=== PATIENT | male | born 1980 ===

== ENCOUNTER 2018-01-06 17:15 | Emergency (ER) | payer BC ==
[2018-01-06 17:24] VITALS: RESP 18
--- NOTE | 2018-01-06 18:10 | C.PDOC ---
History Of Present Illness 37 y/o male presents to the ED stating that 10 days ago he developed a non- productive cough and chest congestion. No fever. Patient reports he started to feel better after the weekend but then yesterday the cough worsened, especially when lying down. He was unable to sleep and went to see his PMD today. In the office today, Dr. Oleary noted his lungs were clear, patient was not hypoxic, however she noticed an irregularity in his heart rhythm, with intermittent bigeminy on EKG, which patient has never had before. Patient was sent to the ER for further evaluation. He otherwise denies any SOB, chest pain, palpitations, dizziness, weakness, numbness, or fever. Time Seen by Provider: 01/06/18 17:54 Chief Complaint (Nursing): Cough, Cold, Congestion History Per: Patient History/Exam Limitations: no limitations Onset/Duration Of Symptoms: Days Current Symptoms Are (Timing): Still Present Past Medical History Reviewed: Historical Data, Nursing Documentation, Vital Signs Vital Signs: Last Vital Signs Temp 98 F 01/06/18 19:42 Pulse 78 01/06/18 19:42 Resp 18 01/06/18 19:42 BP 118/76 01/06/18 19:42 Pulse Ox 99 01/06/18 19:57 - Medical History PMH: No Chronic Diseases Other Surgeries: Vasectomy Family History: States: No Known Family Hx - Social History Hx Tobacco Use: No Hx Alcohol Use: No Hx Substance Use: No Review Of Systems Constitutional: Negative for: Fever, Chills Cardiovascular: Positive for: Other (chest congestion). Negative for: Chest Pain, Palpitations Respiratory: Positive for: Cough. Negative for: Shortness of Breath, Sputum Neurological: Negative for: Weakness, Numbness, Dizziness Physical Exam - Physical Exam Appears: Non-toxic, No Acute Distress Skin: Normal Color, Warm, Dry Head: Atraumatic, Normacephalic Eye(s): bilateral: Normal Inspection, PERRL, EOMI Nose: Normal Oral Mucosa: Moist Neck: Normal ROM, Supple Chest: Symmetrical, No Tenderness Cardiovascular: Rhythm Irregular (occasional irregularity/ectopy) Respiratory: Normal Breath Sounds, No Accessory Muscle Use, No Rales, No Rhonchi , No Wheezing Gastrointestinal/Abdominal: Soft, No Tenderness, No Distention Extremity: Bilateral: Atraumatic, Normal Color And Temperature, Normal ROM Pulses: Left Dorsalis Pedis: Normal, Right Dorsalis Pedis: Normal Neurological/Psych: Oriented x3, Normal Speech Gait: Steady ED Course And Treatment - Laboratory Results Result Diagrams: 01/06/18 18:28 01/06/18 18:28 Lab Interpretation: Abnormal (BUN 24, Troponin normal, electrolytes normal.) ECG: Interpreted By Me, Viewed By Me ECG Rhythm: Sinus Rhythm (with frequent PVCs, trigeminy, otherwise normal) Rate From EC O2 Sat by Pulse Oximetry: 99 (RA) Pulse Ox Interpretation: Normal - Radiology CXR: Interpreted by Me CXR Interpretation: Yes: No Acute Disease Reevaluation Time: 19:57 Reassessment Condition: Improved - Physician Consult Information Time Consulting Physician Contacted: 20:06 Physician Contacted: Stephanie Oleary Outcome Of Conversation: Case discussed. Patient will be follow by her in the office and referred to cardiology if needed. Medical Decision Making Medical Decision Making: Initial Impression: 37 y/o M sent in for irregular rhythm Time: 17:59 Initial Plan: --EKG --CMP --CBC --Troponin I --Chest x-ray Disposition Counseled Patient/Family Regarding: Studies Performed, Diagnosis, Need For Followup, Rx Given - Disposition Referrals: Stephanie Oleary MD [Staff Provider] - Disposition: HOME/ ROUTINE Disposition Time: 20:06 Condition: STABLE Prescriptions: Benzonatate 200 mg PO TID PRN #30 capsule PRN Reason: Cough Instructions: Upper Respiratory Infection (ED), Cough in Adults Forms: [facility] (German) - Clinical Impression Clinical Impression: Upper respiratory infection, Cough in adult - Scribe Statement The provider has reviewed the documentation as recorded by the Dewey Harrison Provider Attestation: All medical record entries made by the Dewey were at my direction and personally dictated by me. I have reviewed the chart and agree that the record accurately reflects my personal performance of the history, physical exam, medical decision making, and the department course for this patient. I have also personally directed, reviewed, and agree with the discharge instructions and disposition.
[2018-01-06 18:32] LABS: BASO % 0.7 % (0.0-2.0); EOS # 0.6 K/uL (0.0-0.7); EOS % 8.2 % (0.0-4.0); HEMOGLOBIN 13.5 g/dL (12.0-18.0); LYMPH # 2.1 K/uL (1.0-4.3); LYMPH % 31.6 % (20.0-40.0); MEAN CELL VOLUME 87.4 fL (80.0-94.0); MEAN CORPUSCULAR HEMOGLOBIN 29.4 pg (27.0-31.0); MEAN CORPUSCULAR HGB CONC 33.6 g/dL (33.0-37.0); MEAN PLATELET VOLUME 8.6 fL (7.2-11.7); MONO # 0.5 K/uL (0.0-0.8); MONO % 8.1 % (0.0-10.0); NEUT # 3.5 K/uL (1.8-7.0); NEUT % 51.4 % (50.0-75.0); NRBC % 0.2 % (0.0-2.0); RBC 4.6 Mil/uL (4.40-5.90); RED CELL DISTRIBUTION WIDTH 13.6 % (11.5-14.5); WHITE BLOOD COUNT 6.8 K/uL (4.8-10.8)
[2018-01-06 18:50] LABS: ALB/GLOB RATIO 1.2 (1.0-2.1); ALBUMIN 4.5 g/dL (3.5-5.0); ALT/SGPT 22 U/L (21-72); AST/SGOT 42 U/L (17-59); BLOOD UREA NITROGEN 24 mg/dL (9-20); CALCIUM 9.3 mg/dl (8.6-10.4); GFR AFRICAN-AMERICAN > 60; GFR NON-AFRICAN AMERICAN 57
[2018-01-06] MEDS ORDERED: Sodium Chloride 0.9% 1,000 ML IV ONE (19:16)
[2018-01-06 19:42] VITALS: PULSE 78; TEMP 98
[2018-01-06 20:28] VITALS: BP 136/74; O2SAT 98
--- NOTE | 2018-01-07 07:57 | RAD ---
HISTORY: SOB COMPARISON: Chest radiographs 01/06/2018. TECHNIQUE: Chest PA and lateral FINDINGS: LUNGS: No active pulmonary disease. PLEURA: No significant pleural effusion identified. No pneumothorax apparent. CARDIOVASCULAR: Normal. OSSEOUS STRUCTURES: No significant abnormalities. VISUALIZED UPPER ABDOMEN: Normal. OTHER FINDINGS: None. IMPRESSION: No interval acute cardiopulmonary disease appreciated.
--- NOTE | 2018-01-07 19:21 | CARD ---
APPROVED REPORT EKG Measurement Heart [id number] <Conclusion> Sinus rhythm with frequent premature ventricular complexes Otherwise normal ECG
== END 2018-01-06 20:28 | disposition home or self-care (01) ==
LOC: C.ER 17:15
DX: J06.9 Acute upper respiratory infection, unspecified (principal); R05 Cough